=== PATIENT | female | born 1965 | race Caucasian/White ===

== ENCOUNTER 2018-03-13 19:17 | Emergency (ER) | payer SELFPAY ==
[2018-03-13 19:27] VITALS: BMI 31.1
--- NOTE | 2018-03-13 19:27 | PDOC ---
Rapid Medical Evaluation Chief Complaint: Psychiatric Time Seen by Provider: 03/13/18 19:25 Medical Evaluation: Allergies Allergy/AdvReac Type Severity Reaction Status Date / Time No Known Allergies Allergy Verified 03/13/18 19:24 03/13/18 19:25 I have performed a brief in-person evaluation of this patient. The patient presents with a chief complaint of: here "because I'm anxious" per pt. Has sob and feels anxious since this am. No CP. Father recently. No h/ o anxiety/depression in past per pt. Seen at [facility] am and sent home on hydroxyzine but has not taken yet. States no ekg/blood work done at [facility]. H/ o tob use, currently on abx for uti Pertinent physical exam findings:hyperventilating in triage I have ordered the following:ekg/labs The patient will proceed to the ED for further evaluation. 03/13/18 19:28 Discharge Disposition - Diagnosis Anxiety - Referrals Referrals: Irving Hopkins MD [Primary Care Provider] - - Patient Instructions - Post Discharge Activity
--- NOTE | 2018-03-13 19:48 | PDOC ---
History of Present Illness - General Chief Complaint: Psychiatric Stated Complaint: ANXIETY Time Seen by Provider: 03/13/18 19:25 - History of Present Illness Initial Comments: The patient is a 52F w/ a history of Reflex Sympathetic Dystrophy Syndrome who presents for evaluation of acute anxiety that began at 0730 this morning. She reports associated shortness of breath at that time. She was evaluated at [facility] at that time, was treated with O2, states she received an Rx for hydroxyzine, but didn't get to pick it up because it wasn't ready at the pharmacy yet. She reports being at [facility] for 3 hours, returning home, feeling better for a time, and then having a resurgence of symptoms so decided to present here for evaluation. She states she has never had a history of anxiety; however, her father one week ago. Since then she has been more sad than usual. She became acutely anxious today and states that she does not understand why. She is currently on day 07/19 of abx for a UTI Reports taking 1 percocet and 1 oxy approx 3hrs [employer] for her RSD Denies fevers/chill, HOLLIS, vision changes, chest pain, SOB, abdominal pain, N/V/C/ D, or changes in sensation 03/13/18 20:05 Past History - Past Medical History Allergies/Adverse Reactions: Allergies Allergy/AdvReac Type Severity Reaction Status Date / Time No Known Allergies Allergy Verified 03/13/18 19:24 Home Medications: Ambulatory Orders Oxycodone HCl/Acetaminophen [Percocet 5-325 mg Tablet] 1 tab PO Q6H 03/13/18 COPD: No Other medical history: RSD - Suicide/Smoking/Psychosocial Hx Smoking History: Current every day smoker Number of Cigarettes Smoked Daily: 10 Information on smoking cessation initiated: No Review of Systems - Review of Systems Able to Perform ROS?: Yes Comments:: GENERAL/CONSTITUTIONAL: No fever or chills. No weakness HEAD, EYES, EARS, NOSE AND THROAT: No change in vision. No ear pain or discharge. No sore throat CARDIOVASCULAR: No chest pain or shortness of breath GASTROINTESTINAL: No nausea, vomiting, diarrhea or constipation GENITOURINARY: No dysuria, frequency, or change in urination MUSCULOSKELETAL: No joint or muscle swelling or pain. No neck or back pain SKIN: No rash NEUROLOGIC: No headache, vertigo, loss of consciousness, or change in strength/ sensation ENDOCRINE: No increased thirst. No abnormal weight change HEMATOLOGIC/LYMPHATIC: No anemia, easy bleeding, or history of blood clots ALLERGIC/IMMUNOLOGIC: No hives or skin allergy PSYCH: Denies SI/HI 03/13/18 19:46 Is the patient limited [place] proficient: No *Physical Exam - Vital Signs Last Vital Signs Temp Pulse Resp BP Pulse Ox 98.2 F 93 H 24 H 95/70 100 03/13/18 19:24 03/13/18 19:24 03/13/18 19:24 03/13/18 19:24 03/13/18 19:24 - Physical Exam Comments: GENERAL: Awake, alert, and fully oriented HEAD: No signs of trauma, normocephalic, atraumatic EYES: PERRLA, EOMI, sclera anicteric, conjunctiva clear ENT: Hearing grossly normal, nares patent, oropharynx clear without exudates. Moist mucosa LUNGS: No distress, speaks full sentences, clear to auscultation bilaterally HEART: Regular rate and rhythm, normal S1 and S2, no murmurs appreciated, peripheral pulses normal and equal bilaterally ABDOMEN: Soft, nontender, normoactive bowel sounds. No guarding, no rebound. No masses EXTREMITIES : Normal inspection, Normal range of motion, no edema. No clubbing or cyanosis NEUROLOGICAL: Cranial nerves II through XII grossly intact. Normal speech, no focal sensorimotor deficits PSYCH: Appears sad/anxious; mood/affect congruent; 03/13/18 19:47 Moderate Sedation - Procedure Monitoring Vital Signs: Procedure Monitoring Vital Signs Temperature 98.2 F 03/13/18 19:24 Pulse Rate 93 H 03/13/18 19:24 Respiratory Rate 24 H 03/13/18 19:24 Blood Pressure 95/70 03/13/18 19:24 O2 Sat by Pulse Oximetry (%) 100 03/13/18 19:24 ED Treatment Course - LABORATORY CBC & Chemistry Diagram: 03/13/18 19:46 03/13/18 19:27 Medical Decision Making - Medical Decision Making Pt is a 52F who presents for evaluation of 1d of anxiety ED Course Labs sent from triage No leukocytosis No anemia 03/13/18 19:48 Repeat vitals Lytes wnl No CIARA LFTs wnl Trop I neg Vital Signs Temp Pulse Resp BP Pulse Ox 97.8 F 98 H 20 127/60 99 03/13/18 22:02 03/13/18 22:02 03/13/18 22:02 03/13/18 22:02 03/13/18 22:02 ECG w/ NSR and HR 90; QTc 418 Pt w/ Hydroxyzine Rx at pharmacy Plan for D/C w/ PCP and psych f/u Discharge instructions and return precautions given Plan discussed w/ patient who is in agreement and verbalized understanding Dispo: home 03/13/18 21:51 *DC/Admit/Observation/Transfer Diagnosis at time of Disposition: Anxiety - Discharge Dispostion Disposition: HOME Condition at time of disposition: Stable Decision to Admit order: No - Referrals Referrals: Rae Anna NP [Nurse Practitioner] - Irving Hopkins MD [Primary Care Provider] - Sukhjinder Guzman NP [Nurse Practitioner] - - Patient Instructions Printed Discharge Instructions: DI for Anxiety -- Adult Additional Instructions: You were seen in the Emergency Department today for anxiety. Review the handout provided at discharge. surface supply breathing apparatus your prescription sent by [facility] and take as directed. Please follow up with your primary care provider and psychiatry referral. Return to the Emergency Department if you develop fevers/chill, chest pain, trouble breathing, nausea/vomiting, or thoughts of hurting yourself or others - Post Discharge Activity
[2018-03-13 19:54] LABS: BASO % 0.7 % (0-2.0); HEMATOCRIT 42.7 % (32.4-45.2); HEMOGLOBIN 15.6 GM/dL (10.7-15.3); LYMPH % 36.7 % (8-40); MCH 32.5 pg (25.7-33.7); MCHC 36.5 g/dl (32.0-36.0); MONO % 6.5 % (3.8-10.2); NEUT % 54.1 % (42.8-82.8); PLATELET COUNT 271 K/MM3 (134-434); RDW 12.6 % (11.6-15.6); WHITE BLOOD COUNT 6.9 K/mm3 (4.0-10.0)
[2018-03-13 20:34] LABS: ALBUMIN 4.2 g/dl (3.4-5.0); ALK PHOS 61 U/L (45-117); ANION GAP 10 MMOL/L (8-16); BILIRUBIN,TOTAL 0.4 mg/dL (0.2-1); BLOOD UREA NITROGEN 14 mg/dL (7-18); CALCIUM 9.7 mg/dL (8.5-10.1); CHLORIDE 106 mmol/L (98-107); CO2 22 mmol/L (21-32); GLUCOSE,RANDOM 95 mg/dL (74-106); POTASSIUM 3.9 mmol/L (3.5-5.1); SGOT/AST 19 U/L (15-37); SGPT/ALT 27 U/L (13-61); SODIUM 138 mmol/L (136-145); TOT PROT 8.2 g/dl (6.4-8.2)
--- NOTE | 2018-03-13 20:34 | PDOC ---
Attending Attestation - HPI HPI: 03/13/18 21:51 The patient is a 52 year old female with a significant PMH of panic attacks who presents to the emergency department with shortness of breath since earlier today. The patient reports that her father about 1 week ago and she has seen been grieving and experiencing some anxiety. The patient was seen at [facility] earlier today for these symptoms by which she was prescribed medication. The patient reports that when she went to pick them up it was not there so she came here. The patient denies any other symptoms or complaints. She states that she feels better on exam. PCP: Sandeep - Physicial Exam PE: 03/13/18 21:51 GENERAL: Awake, alert, and fully oriented, in no acute distress HEAD: No signs of trauma EYES: PERRLA, EOMI, sclera anicteric, conjunctiva clear ENT: Auricles normal inspection, hearing grossly normal, nares patent, oropharynx clear without exudates. Moist mucosa NECK: Normal ROM, supple, no lymphadenopathy, JVD, or masses LUNGS: Breath sounds equal, clear to auscultation bilaterally. No wheezes, and no crackles HEART: Regular rate and rhythm, normal S1 and S2, no murmurs, rubs or gallops ABDOMEN: Soft, nontender, normoactive bowel sounds. No guarding, no rebound. No masses EXTREMITIES: Normal range of motion, no edema. No clubbing or cyanosis. No cords, erythema, or tenderness NEUROLOGICAL: Cranial nerves II through XII grossly intact. Normal speech, normal gait SKIN: Warm, Dry, normal turgor, no rashes or lesions noted. Documentation prepared by Derek Banda, acting as center medical and lab director for Edel Carey MD. <Derek Banda - Last Filed: 03/13/18 21:51> - Resident Resident Name: Ezequiel Brown - ED Attending Attestation I have performed the following: I have examined & evaluated the patient, The case was reviewed & discussed with the resident, I agree w/resident's findings & plan, Exceptions are as noted - Medical Decision Making 03/13/18 20:33 I, Dr. Edel Carey, DO, attest that this document has been prepared under my direction and personally reviewed by me in its entirety. I further attest, that it accurately reflects all work, treatment, procedures and medical decision -making performed by me. 03/13/18 21:13 a/p: 52yo female with recent loss of her father with grief and anxiety today -pt requesting outpt psych -denies SI/HI -states feeling better now -will send labs -will give hydroxyzine in the ED -will monitor and reassess 03/13/18 21:14 labs reviewed trop negative 03/13/18 21:56 +opiates in UDS 03/13/18 22:09 pt is stable for dc to home to follow up with psych for therapy and grief/ bereavement follow up <Edel Carey - Last Filed: 03/13/18 22:10> Heart Score/ECG Review - ECG Intrepretation Comment:: 03/13/18 22:09 sinus at 90, nl axis, nl interval, no acute st/t wave findings <Edel Carey - Last Filed: 03/13/18 22:10>
[2018-03-13] MEDS ORDERED: hydrOXYzine PAMOATE 25 MG CAPSULE (FP) PO ONE (20:56)
[2018-03-13 21:44] LABS: COCAINE, UR NEGATIVE ng/ml (CUTOFF=300); METHADONE, UR NEGATIVE ng/ml (CUTOFF=300); PHENCYCLIDINE,URINE NEGATIVE ng/ml (CUTOFF=25); URINE AMPHETAMINES NEGATIVE ng/ml (CUTOFF=500); URINE BARBITURATES NEGATIVE ng/ml (CUTOFF=200); URINE BENZODIAZEPINES NEGATIVE ng/ml (CUTOFF=200)
[2018-03-13 21:46] LABS: OPIATES, URI POSITIVE ng/ml (CUTOFF=300)
[2018-03-13 22:03] VITALS: BP 127/60; PULSE 98; TEMP 97.8
--- NOTE | 2018-03-14 17:13 | EKG ---
Test Reason : Blood Pressure : / mmHG Vent. Rate : 090 BPM Atrial Rate : 090 BPM P-R Int : 164 ms QRS Dur : 076 ms QT Int : 342 ms P-R-T Axes : 053 031 040 degrees QTc Int : 418 ms NORMAL SINUS RHYTHM POSSIBLE LEFT ATRIAL ENLARGEMENT BORDERLINE ECG WHEN COMPARED WITH ECG OF 10-JAN-2004 17:15, NO SIGNIFICANT CHANGE WAS FOUND Confirmed by MD SHERICE, RON ([id number]) on 03/14/2018 5:12:51 PM Referred By: Confirmed By:RON SMILEY MD
== END 2018-03-13 23:00 | disposition home or self-care (01) ==
LOC: JER 19:17
DX: F41.9 Anxiety disorder, unspecified (principal); Z63.4 Disappearance and death of family member; G90.50 Complex regional pain syndrome I, unspecified
CPT/HCPCS: 36415; 80053; 80307; 82550; 84484; 85025; 93005; 93010; 99282-25

== ENCOUNTER 2021-04-15 11:22 | Emergency (ER) | payer OTHER ==
[2021-04-15 11:26] VITALS: TEMP 97.4; BMI 45.7
[2021-04-15 15:11] VITALS: BP 112/74; PULSE 82
[2021-04-16 21:09] LABS: SARS-CoV-2 NAA Not Detected (Not Detected)
== END 2021-04-15 14:45 | disposition home or self-care (01) ==
LOC: JER 11:22
DX: R68.83 Chills (without fever) (principal); Z11.52 Encounter for screening for COVID-19
CPT/HCPCS: 99283-25; C9803; U0003; U0005

== ENCOUNTER 2021-05-21 19:39 | Observation (INO) | payer OTHER ==
[2021-05-21] MEDS ORDERED: METOCLOPRAMIDE HCL INJECTION 10 MG/2 ML VIAL IVPUSH ONE (20:57)
[2021-05-21] MEDS ORDERED: ACETAMINOPHEN 1000 MG/100 ML BAG IVPB ONE (20:58)
[2021-05-21] MEDS ORDERED: ACETAMINOPHEN INJECTION 100 ML IVPB ONE (21:12)
[2021-05-21] MEDS ORDERED: METOCLOPRAMIDE HCL INJECTION 10 MG/2 ML VIAL ONE (21:12)
[2021-05-21 22:49] LABS: BASO % 0.4 % (0-2.0); EOS % 1.8 % (0-4.5); HEMATOCRIT 44.9 % (32.4-45.2); HEMOGLOBIN 15.4 GM/dL (10.7-15.3); LYMPH % 38.4 % (8-40); MCH 29.7 pg (25.7-33.7); MCHC 34.2 g/dl (32.0-36.0); MEAN CELL VOLUME 86.8 fl (80-96); MEAN PLT VOLUME 7.6 fl (7.5-11.1); MONO % 6.4 % (3.8-10.2); PLATELET COUNT 154 10^3/uL (134-434); RBC 5.17 M/mm3 (3.60-5.2); RDW 14.1 % (11.6-15.6)
[2021-05-21 22:59] LABS: CALCIUM 9.2 mg/dL (8.5-10.1)
[2021-05-21 23:00] LABS: BLOOD UREA NITROGEN 21.1 mg/dL (7-18); MAGNESIUM 2.3 mg/dL (1.8-2.4)
[2021-05-21 23:04] LABS: BILIRUBIN,TOTAL 0.5 mg/dL (0.2-1)
[2021-05-22] MEDS ORDERED: METOCLOPRAMIDE HCL INJECTION 10 MG/2 ML VIAL IVPUSH ONE (06:48)
[2021-05-22] MEDS ORDERED: METOCLOPRAMIDE HCL INJECTION 10 MG/2 ML VIAL ONE (07:34)
[2021-05-22] MEDS ORDERED: MECLIZINE HCL 25 MG TABLET (FP) PO ONE (09:45)
[2021-05-22] MEDS ORDERED: MECLIZINE HCL 25 MG TABLET (FP) ONE (09:52)
[2021-05-22] MEDS ORDERED: ALPRAZolam 1 MG TABLET PO ONE (10:39)
[2021-05-22] MEDS ORDERED: TRIMETHOBENZAMIDE HCL 200MG/2ML INJ IM ONE (13:54)
[2021-05-22] MEDS: ONDANSETRON *ODT* 4 MG TABLET SL PRN (15:41)
[2021-05-22] MEDS ORDERED: hydrOXYzine PAMOATE 25 MG CAPSULE (FP) PO PRN (16:32)
[2021-05-22] MEDS ORDERED: ALBUTEROL SO4 0.083% IH SOL 2.5 MG/3 ML VIAL.NEB. NEB PRN (16:32)
[2021-05-22] MEDS ORDERED: ACETAMINOPHEN 325 MG TABLET (FP) PO PRN (16:32)
[2021-05-22] MEDS: HEPARIN NA (PORCINE) 5,000 UNITS/ML 1ML VIAL SQ SCH (21:53)
[2021-05-22] MEDS: traZODone HCL 50 MG TABLET (FP) PO SCH (21:53)
[2021-05-23] MEDS: ONDANSETRON *ODT* 4 MG TABLET SL PRN ×2 (06:06→14:10)
[2021-05-23 08:56] LABS: HEMOGLOBIN 15.1 GM/dL (10.7-15.3); MCH 28.7 pg (25.7-33.7); MCHC 33.5 g/dl (32.0-36.0); MEAN CELL VOLUME 85.8 fl (80-96); MEAN PLT VOLUME 7.5 fl (7.5-11.1); PLATELET COUNT 173 10^3/uL (134-434); RBC 5.25 M/mm3 (3.60-5.2); RDW 13.7 % (11.6-15.6); WHITE BLOOD COUNT 4.8 K/mm3 (4.0-10.0)
[2021-05-23 09:17] LABS: CHLORIDE 106 mmol/L (98-107); SODIUM 138 mmol/L (136-145)
[2021-05-23 09:22] LABS: CALCIUM 9.1 mg/dL (8.5-10.1); GLUCOSE,RANDOM 90 mg/dL (74-106)
[2021-05-23 09:24] LABS: ALBUMIN 3.8 g/dl (3.4-5.0); ANION GAP 6 MMOL/L (8-16); BLOOD UREA NITROGEN 21.2 mg/dL (7-18); CO2 26 mmol/L (21-32)
[2021-05-23 09:26] LABS: CREATININE 0.8 mg/dL (0.55-1.3); SGOT/AST 18 U/L (15-37); SGPT/ALT 24 U/L (13-61)
[2021-05-23 09:27] LABS: BILIRUBIN,TOTAL 0.6 mg/dL (0.2-1); TOT PROT 7.8 g/dl (6.4-8.2)
[2021-05-23 09:28] LABS: ALK PHOS 58 U/L (45-117)
[2021-05-23] MEDS: SERTRALINE HCL 25 MG TABLET (FP) PO SCH (11:59)
[2021-05-23] MEDS: QUEtiapine FUMARATE 50 MG TABLET PO SCH (11:59)
[2021-05-23] MEDS: HEPARIN NA (PORCINE) 5,000 UNITS/ML 1ML VIAL SQ SCH ×2 (11:59→22:57)
[2021-05-23] MEDS ORDERED: D5-1/2NS+20 MEQ KCL - 20 MEQ/1,000 ML INFUS.BAG IV SCH (12:00)
[2021-05-23 17:16] LABS: LIPASE 78 U/L (73-393)
[2021-05-23] MEDS ORDERED: LORazepam 1 MG TABLET PO PRN (18:04)
[2021-05-23] MEDS: traZODone HCL 50 MG TABLET (FP) PO SCH (22:57)
[2021-05-24] MEDS: QUEtiapine FUMARATE 50 MG TABLET PO SCH (10:41)
[2021-05-24] MEDS: HEPARIN NA (PORCINE) 5,000 UNITS/ML 1ML VIAL SQ SCH (10:41)
[2021-05-24] MEDS: SERTRALINE HCL 25 MG TABLET (FP) PO SCH (10:41)
[2021-05-24 10:57] VITALS: BP 127/78; PULSE 78; TEMP 98.5
[2021-05-24 14:59] VITALS: BMI 40.9
== END 2021-05-24 18:15 | disposition home or self-care (01) ==
LOC: JER 19:39 → JERBED 05-22 10:37 → J7W 05-22 15:00
PROVIDERS: ADMIT Family Medicine; ATTEND Family Medicine
PROC: 3E033NZ Introduction of Analgesics, Hypnotics, Sedatives into Peripheral Vein, Percutaneous Approach (ICD-10-PCS; principal; 2021-05-22)
PROC: 3E033GC Introduction of Other Therapeutic Substance into Peripheral Vein, Percutaneous Approach (ICD-10-PCS; 2021-05-22)
PROC: 3E023GC Introduction of Other Therapeutic Substance into Muscle, Percutaneous Approach (ICD-10-PCS; 2021-05-22)
DX: J18.9 Pneumonia, unspecified organism (principal); E86.0 Dehydration; F32.9 Major depressive disorder, single episode, unspecified; F11.90 Opioid use, unspecified, uncomplicated; F41.0 Panic disorder [episodic paroxysmal anxiety]; R47.01 Aphasia; E66.01 Morbid (severe) obesity due to excess calories; Z68.41 Body mass index [BMI] 40.0-44.9, adult; F41.9 Anxiety disorder, unspecified; R10.9 Unspecified abdominal pain; R11.2 Nausea with vomiting, unspecified; Z87.891 Personal history of nicotine dependence; G62.9 Polyneuropathy, unspecified
CPT/HCPCS: 36415; 70450-TC; 70551-TC; 71045-TC-FY; 71250-TC; 74176-TC; 80053; 83690; 83735; 84439; 84443; 84484; 85025; 85027; 85379; 86140; 93005; 93010; 93970-TC; 96372; 96374; 96375; 96376; 97116-GP; 97161-GP; 99285-25; C9803; G0378; J1644; Q0162; U0003; U0005

== ENCOUNTER 2021-07-05 08:25 | Inpatient (IN) | payer OTHER ==
[2021-07-05 08:43] VITALS: BMI 40.2
[2021-07-05] MEDS ORDERED: LORazepam 2 MG/ML SDV VIAL IVPUSH ONE (09:12)
[2021-07-05] MEDS ORDERED: SODIUM CHLORIDE 0.9% 1000 ML INFUS.BAG IV ONE (09:26)
[2021-07-05] MEDS ORDERED: ASPIRIN 325 MG ENTERIC COATED TABLET (FP) PO ONE (09:51)
[2021-07-05] MEDS ORDERED: ASPIRIN 325 MG TABLET ONE (10:01)
[2021-07-05 10:07] LABS: BASO % 0.3 % (0-2.0); HEMATOCRIT 40.8 % (32.4-45.2); HEMOGLOBIN 13.7 GM/dL (10.7-15.3); LYMPH % 27.2 % (8-40); MCH 29.5 pg (25.7-33.7); MCHC 33.6 g/dl (32.0-36.0); MEAN CELL VOLUME 87.8 fl (80-96); MEAN PLT VOLUME 7.6 fl (7.5-11.1); MONO % 6.4 % (3.8-10.2); NEUT % 65.1 % (42.8-82.8); PLATELET COUNT 171 10^3/uL (134-434); RBC 4.64 M/mm3 (3.60-5.2); WHITE BLOOD COUNT 7.3 K/mm3 (4.0-10.0)
[2021-07-05] MEDS ORDERED: BUPRENORPHINE/NALOXONE 4 MG/1 MG FILM PACKET SL ONE (10:08)
[2021-07-05 10:09] LABS: INR 1.13 (0.83-1.09)
[2021-07-05 10:11] LABS: ACTIVATED PTT 34.1 SECONDS (25.2-36.5)
[2021-07-05 10:27] LABS: ALBUMIN 4.2 g/dl (3.4-5.0); BLOOD UREA NITROGEN 16.5 mg/dL (7-18); CALCIUM 8.9 mg/dL (8.5-10.1)
[2021-07-05 10:30] LABS: CREATININE 0.9 mg/dL (0.55-1.3)
[2021-07-05 10:31] LABS: BILIRUBIN,TOTAL 0.7 mg/dL (0.2-1)
[2021-07-05 10:32] LABS: TOT PROT 7.6 g/dl (6.4-8.2)
[2021-07-05 11:21] LABS: URINE APPEARANCE CLEAR; URINE COLOR YELLOW
[2021-07-05 11:22] LABS: COCAINE, UR NEGATIVE (NEGATIVE); METHADONE, UR NEGATIVE (NEGATIVE); OPIATES, URI NEGATIVE (NEGATIVE); PH,URINE 7.5 (5.0-8.0); PHENCYCLIDINE,URINE NEGATIVE (NEGATIVE); URINE AMPHETAMINES NEGATIVE (NEGATIVE); URINE BARBITURATES NEGATIVE (NEGATIVE); URINE BENZODIAZEPINES NEGATIVE (NEGATIVE); URINE BILIRUBIN NEGATIVE (NEGATIVE); URINE GLUCOSE (UA) NEGATIVE (NEGATIVE); URINE KETONE NEGATIVE (NEGATIVE); URINE LEUK ESTERASE 2+ (NEGATIVE); URINE NITRITE POSITIVE (NEGATIVE); URINE PROTEIN NEGATIVE (NEGATIVE); URINE UROBILINOGEN 0.2 mg/dL (0.2-1.0)
[2021-07-05] MEDS ORDERED: CEFTRIAXONE 1,000 MG in DEXTROSE 5%-WATER - 50 ML IVPB ONE (11:32)
[2021-07-05 11:37] LABS: URINE WBC 68 /uL (0-25.8)
[2021-07-05] MEDS ORDERED: CEFTRIAXONE 1 GM/50 ML BAG ONE (12:38)
[2021-07-05] MEDS ORDERED: BUPRENORPHINE/NALOXONE 2 MG/0.5 MG FILM PACKET ONE ×2 (12:40→12:41)
[2021-07-05 15:42] LABS: EPI CELLS >36 /uL (0-25.1); HYALINE CASTS 0 /uL (0-3.1); URINE BACTERIA >9,000 /uL (0-1359); URINE RBC 3 /uL (0-23.9)
[2021-07-05] MEDS ORDERED: ALBUTEROL SO4 HFA INHALER IH PRN (15:45)
[2021-07-05] MEDS ORDERED: D5-1/2NS+20 MEQ KCL - 20 MEQ/1,000 ML INFUS.BAG IV SCH (16:00)
[2021-07-05] MEDS: HEPARIN NA (PORCINE) 5,000 UNITS/ML 1ML VIAL SQ SCH (21:20)
[2021-07-06] MEDS ORDERED: LORazepam 2 MG/ML SDV VIAL IVPUSH ONE ×2 (04:03→09:43)
[2021-07-06 07:08] LABS: BASO % 0.6 % (0-2.0); EOS % 1.2 % (0-4.5); HEMATOCRIT 38.5 % (32.4-45.2); LYMPH % 33.5 % (8-40); MCH 30.1 pg (25.7-33.7); MCHC 33.7 g/dl (32.0-36.0); MEAN CELL VOLUME 89.3 fl (80-96); MEAN PLT VOLUME 7.9 fl (7.5-11.1); MONO % 6.9 % (3.8-10.2); NEUT % 57.8 % (42.8-82.8); PLATELET COUNT 143 10^3/uL (134-434); RBC 4.31 M/mm3 (3.60-5.2); RDW 14.2 % (11.6-15.6); WHITE BLOOD COUNT 5.1 K/mm3 (4.0-10.0)
[2021-07-06 07:44] LABS: CALCIUM 8.3 mg/dL (8.5-10.1)
[2021-07-06 07:45] LABS: BLOOD UREA NITROGEN 10.7 mg/dL (7-18)
[2021-07-06 07:48] LABS: CREATININE 0.7 mg/dL (0.55-1.3)
[2021-07-06 07:49] LABS: BILIRUBIN,TOTAL 0.6 mg/dL (0.2-1); TOT PROT 6.5 g/dl (6.4-8.2)
[2021-07-06 08:12] LABS: ALBUMIN 3.3 g/dl (3.4-5.0)
[2021-07-06] MEDS ORDERED: DEXTROSE 5%-WATER - 50 ML IVPB ONE (09:35)
[2021-07-06] MEDS ORDERED: cefTRIAXone SODIUM 1 GM VIAL ONE (09:35)
[2021-07-06] MEDS: QUEtiapine FUMARATE 100 MG TABLET (FP) PO SCH ×2 (09:39→09:43)
[2021-07-06] MEDS: CEFTRIAXONE 1 GM in DEXTROSE 5%-WATER - 50 ML IVPB SCH (09:41)
[2021-07-06] MEDS: HEPARIN NA (PORCINE) 5,000 UNITS/ML 1ML VIAL SQ SCH ×2 (09:41→21:21)
[2021-07-06] MEDS: ASPIRIN 81 MG CHEWABLE TABLETS PO SCH (09:42)
[2021-07-06] MEDS: SERTRALINE HCL 25 MG TABLET (FP) PO SCH (09:47)
[2021-07-06 21:04] LABS: OPIATES, URI NEGATIVE (NEGATIVE); URINE AMPHETAMINES NEGATIVE (NEGATIVE); URINE BARBITURATES NEGATIVE (NEGATIVE)
[2021-07-06 21:05] LABS: METHADONE, UR NEGATIVE (NEGATIVE); PHENCYCLIDINE,URINE NEGATIVE (NEGATIVE); URINE BENZODIAZEPINES NEGATIVE (NEGATIVE)
[2021-07-06 21:06] LABS: COCAINE, UR NEGATIVE (NEGATIVE)
[2021-07-06] MEDS: ATORVASTATIN CA 20 MG TABLET (FP) PO SCH (21:21)
[2021-07-07] MEDS ORDERED: SCOPOLAMINE HYDROBROMIDE 1 PATCH PATCH.TD72 TD SCH (04:00)
[2021-07-07] MEDS ORDERED: MECLIZINE HCL 25 MG TABLET (FP) PO ONE (04:12)
[2021-07-07] MEDS ORDERED: ACETAMINOPHEN 500 MG TABLET (FP) PO ONE (04:13)
[2021-07-07] MEDS ORDERED: LORazepam 0.5 MG TABLET PO ONE (05:52)
[2021-07-07] MEDS ORDERED: cefTRIAXone SODIUM 1 GM VIAL ONE (10:41)
[2021-07-07] MEDS ORDERED: DEXTROSE 5%-WATER - 50 ML IVPB ONE (10:41)
[2021-07-07] MEDS: SERTRALINE HCL 25 MG TABLET (FP) PO SCH (10:45)
[2021-07-07] MEDS: CEFTRIAXONE 1 GM in DEXTROSE 5%-WATER - 50 ML IVPB SCH (10:45)
[2021-07-07] MEDS: ASPIRIN 81 MG CHEWABLE TABLETS PO SCH (10:45)
[2021-07-07] MEDS: QUEtiapine FUMARATE 100 MG TABLET (FP) PO SCH (10:45)
[2021-07-07] MEDS: HEPARIN NA (PORCINE) 5,000 UNITS/ML 1ML VIAL SQ SCH ×2 (10:45→22:30)
[2021-07-07] MEDS: BUPRENORPHINE/NALOXONE 2 MG/0.5 MG FILM PACKET SL SCH (12:51)
[2021-07-07] MEDS: ATORVASTATIN CA 20 MG TABLET (FP) PO SCH (22:30)
[2021-07-08] MEDS ORDERED: LORazepam 0.5 MG TABLET PO ONE (07:00)
[2021-07-08] MEDS ORDERED: DEXTROSE 5%-WATER - 50 ML IVPB ONE (09:27)
[2021-07-08] MEDS ORDERED: cefTRIAXone SODIUM 1 GM VIAL ONE (09:27)
[2021-07-08] MEDS: ASPIRIN 81 MG CHEWABLE TABLETS PO SCH (09:31)
[2021-07-08] MEDS: QUEtiapine FUMARATE 100 MG TABLET (FP) PO SCH (09:31)
[2021-07-08] MEDS: SERTRALINE HCL 25 MG TABLET (FP) PO SCH (09:31)
[2021-07-08] MEDS: CEFTRIAXONE 1 GM in DEXTROSE 5%-WATER - 50 ML IVPB SCH (09:31)
[2021-07-08] MEDS: HEPARIN NA (PORCINE) 5,000 UNITS/ML 1ML VIAL SQ SCH ×2 (09:31→21:47)
[2021-07-08] MEDS: BUPRENORPHINE/NALOXONE 2 MG/0.5 MG FILM PACKET SL SCH (09:32)
[2021-07-08] MEDS: ATORVASTATIN CA 20 MG TABLET (FP) PO SCH (21:47)
[2021-07-08] MEDS ORDERED: ONDANSETRON 4 MG TABLET PO ONE (23:25)
[2021-07-09 09:09] VITALS: BP 130/70; PULSE 79; TEMP 97.9
[2021-07-09] MEDS: QUEtiapine FUMARATE 100 MG TABLET (FP) PO SCH (09:53)
[2021-07-09] MEDS: ASPIRIN 81 MG CHEWABLE TABLETS PO SCH (09:53)
[2021-07-09] MEDS: SERTRALINE HCL 25 MG TABLET (FP) PO SCH (09:53)
[2021-07-09] MEDS: HEPARIN NA (PORCINE) 5,000 UNITS/ML 1ML VIAL SQ SCH (09:53)
[2021-07-09] MEDS: BUPRENORPHINE/NALOXONE 2 MG/0.5 MG FILM PACKET SL SCH (09:54)
[2021-07-09] MEDS ORDERED: ACETAMINOPHEN 500 MG TABLET (FP) PO PRN (10:10)
[2021-07-09] MEDS: CEFTRIAXONE 1 GM in DEXTROSE 5%-WATER - 50 ML IVPB SCH (10:13)
[2021-07-09] MEDS ORDERED: CEPHALEXIN MONOHYDRATE 500 MG CAPSULE (UD) PO SCH (22:00)
== END 2021-07-09 14:07 | disposition home or self-care (01) | DRG 92 ==
LOC: JER 08:25 → JERBED 12:08 → J4S 19:43
PROVIDERS: ADMIT Family Medicine; ATTEND Family Medicine
DX: G92.9 Unspecified toxic encephalopathy (principal); N39.0 Urinary tract infection, site not specified; R47.01 Aphasia; Z68.41 Body mass index [BMI] 40.0-44.9, adult; F11.20 Opioid dependence, uncomplicated; T45.0X1A Poisoning by antiallergic and antiemetic drugs, accidental (unintentional), initial encounter; F41.9 Anxiety disorder, unspecified; E66.9 Obesity, unspecified; R44.1 Visual hallucinations; R47.1 Dysarthria and anarthria; E78.5 Hyperlipidemia, unspecified; R47.81 Slurred speech; R42 Dizziness and giddiness; T45.0X5A Adverse effect of antiallergic and antiemetic drugs, initial encounter
CPT/HCPCS: 36415; 70450-TC; 70496-TC; 70498-TC; 70551-TC; 71045-TC-FY; 80053; 80061; 80307; 81003; 82607; 82962; 83036; 84443; 84484; 85025; 85610; 85730; 86780; 86850; 86900; 86901; 87086; 87186; 93005; 93010; 97116-GP; 97162-GP; 99285-25; C9803-CS; G0480; J1644; U0003; U0005

== ENCOUNTER 2024-11-03 04:15 | Emergency (ER) | payer OTHER ==
[2024-11-03 04:21] VITALS: BMI 66.1
[2024-11-03] MEDS: ALBUTEROL SO4 2.5/IPRATROPIUM 0.5 INH SOL 3 ML VIAL.NEB. NEB SCH (05:16)
[2024-11-03 07:06] LABS: EPI CELLS 30 /uL (0-25.1); HYALINE CASTS 1 /uL (0-3.1); URINE APPEARANCE CLEAR; URINE BACTERIA 52 /uL (0-1359); URINE BILIRUBIN NEGATIVE (NEGATIVE); URINE COLOR YELLOW; URINE GLUCOSE (UA) NEGATIVE (NEGATIVE); URINE KETONE NEGATIVE (NEGATIVE); URINE LEUK ESTERASE 2+ (NEGATIVE); URINE NITRITE NEGATIVE (NEGATIVE); URINE PROTEIN TRACE (NEGATIVE); URINE RBC 140 /uL (0-23.9); URINE UROBILINOGEN 0.2 mg/dL (0.2-1.0); URINE WBC 193 /uL (0-25.8)
[2024-11-03 07:37] VITALS: BP 141/76; PULSE 86; RESP 17; TEMP 98.1
[2024-11-03 15:32] LABS: HIV INTERPRETATION NEGATIVE (NEGATIVE)
[2024-11-03 15:39] LABS: HCV DIAGNOSTIC IN-HOUSE W/RFLX NON-REACTIVE (NONREACTIVE)
== END 2024-11-03 09:15 | disposition home or self-care (01) ==
LOC: JER 04:15
PROC: 3E0F7GC Introduction of Other Therapeutic Substance into Respiratory Tract, Via Natural or Artificial Opening (ICD-10-PCS; principal; 2024-11-03)
DX: R31.9 Hematuria, unspecified (principal); R06.02 Shortness of breath; M54.50 Low back pain, unspecified; R30.0 Dysuria
CPT/HCPCS: 36415; 81003; 86803; 87086; 87389; 99283-25

== ENCOUNTER 2024-12-02 19:29 | Emergency (ER) | payer OTHER ==
[2024-12-02 19:51] VITALS: TEMP 97.1; BMI 59.4
[2024-12-02] MEDS ORDERED: ONDANSETRON 4 MG/2 ML VIAL ONE (21:42)
[2024-12-02] MEDS ORDERED: FAMOTIDINE 20 MG/50 ML IVPB 20 MG/50 ML MG IVPB ONE (21:42)
[2024-12-02] MEDS ORDERED: ALBUTEROL SO4 2.5/IPRATROPIUM 0.5 INH SOL 3 ML VIAL.NEB. NEB ONE (21:42)
[2024-12-02] MEDS ORDERED: ACETAMINOPHEN INJECTION 100 ML ONE (21:42)
[2024-12-02] MEDS: LACTATED RINGERS SOLUTION 1000 ML INFUS.BAG IV ONE (21:46)
[2024-12-02] MEDS: ACETAMINOPHEN 1000 MG/100 ML BAG IVPB ONE (21:47)
[2024-12-02 21:48] LABS: ABSOLUTE IMMATURE GRANULOCYTES 0.04 x10^3/uL (0.0-0.031); BASOPHILS # 0.04 x10^3/uL (0.01-0.08); EOSINOPHIL % 2.2 % (0.7-5.8); EOSINOPHILS # 0.14 x10^3/uL (0.04-0.36); MCHC 32.3 g/dl (32.2-35.5); MEAN CELL VOLUME 88.9 fl (79.4-94.8); MEAN PLT VOLUME 9.8 fl (9.4-12.3); MONOCYTE # 0.39 x10^3/uL (0.24-0.86); MONOCYTE % 6.2 % (4.7-12.5); RDW 13.6 % (12.4-16.4)
[2024-12-02] MEDS: ONDANSETRON 4 MG/2 ML VIAL IVPUSH ONE (21:48)
[2024-12-02] MEDS: ALBUTEROL SO4 2.5/IPRATROPIUM 0.5 INH SOL 3 ML VIAL.NEB. NEB ONE (21:48)
[2024-12-02] MEDS: FAMOTIDINE 20 MG/50 ML IVPB 20 MG/50 ML MG IVPB ONE (21:48)
[2024-12-02 21:52] LABS: INR 1.22 (0.83-1.09); PROTHROMBIN TIME (PATIENT) 13.3 SEC (9.7-13.0)
[2024-12-02 21:56] LABS: ACTIVATED PTT 32.1 SECONDS (25.2-36.5)
[2024-12-02 22:02] LABS: GLUCOSE,RANDOM 135.0 mg/dL (74-106)
[2024-12-02 22:03] LABS: CO2 27.0 mmol/L (21-32); TOT PROT 8.1 g/dl (6.4-8.2)
[2024-12-02] MEDS: ONDANSETRON 4 MG/2 ML VIAL IVPB ONE (22:04)
[2024-12-02 22:05] LABS: ALK PHOS 56.0 U/L (40-150)
[2024-12-02 22:08] LABS: CREATININE 0.66 mg/dL (0.55-1.3); SGOT/AST 28.0 U/L (5-34); SGPT/ALT 28.0 U/L (0-55)
[2024-12-02 22:28] LABS: HCV DIAGNOSTIC IN-HOUSE W/RFLX NON-REACTIVE (NONREACTIVE)
[2024-12-02 22:29] LABS: HIV INTERPRETATION NEGATIVE (NEGATIVE)
[2024-12-03 00:15] VITALS: BP 125/74; PULSE 74; RESP 16
== END 2024-12-03 00:15 | disposition home or self-care (01) ==
LOC: JER 19:29
PROC: 3E033GC Introduction of Other Therapeutic Substance into Peripheral Vein, Percutaneous Approach (ICD-10-PCS; principal; 2024-12-02)
PROC: 3E033GC Introduction of Other Therapeutic Substance into Peripheral Vein, Percutaneous Approach (ICD-10-PCS; 2024-12-02)
PROC: 3E033NZ Introduction of Analgesics, Hypnotics, Sedatives into Peripheral Vein, Percutaneous Approach (ICD-10-PCS; 2024-12-02)
PROC: 3E0F7GC Introduction of Other Therapeutic Substance into Respiratory Tract, Via Natural or Artificial Opening (ICD-10-PCS; 2024-12-02)
DX: R10.11 Right upper quadrant pain (principal); R10.12 Left upper quadrant pain; R10.13 Epigastric pain; R11.2 Nausea with vomiting, unspecified; R06.02 Shortness of breath; R14.0 Abdominal distension (gaseous); R42 Dizziness and giddiness
CPT/HCPCS: 36415; 71046-TC-FY; 74177-TC; 80053; 83690; 84484; 85025; 85610; 85730; 86803; 86850; 86900; 86901; 87389; 93005; 93010; 99285-25; Q9967